=== PATIENT | male | born 1945 | race Caucasian/White ===

== ENCOUNTER 2022-04-04 14:25 | Emergency (ER) | payer MEDICARE, SELFPAY ==
[2022-04-04 14:40] VITALS: BP 144/71; PULSE 66; RESP 18; TEMP 36.6; O2SAT 98
--- NOTE | 2022-04-04 14:49 | ED.GENADULT ---
HPI - General Adult General Chief complaint: Ear Stated complaint: lt earache Time Seen by Provider: 04/04/22 14:49 Source: patient, RN notes reviewed and old records reviewed Mode of arrival: ambulatory Limitations: no limitations History of Present Illness HPI narrative: 77-year-old male presents to the [facility] with his with in left-sided ear pain for 10 days. States that he had seen his primary and was prescribed azithromycin for the ear infection. States it is not getting any better. Patient is concerned because he has recently had a hip replacement. Currently on Coumadin. Related Data Home Medications Medication Instructions Recorded Confirmed allopurinol 300 mg tablet 300 mg PO DAILY 04/04/22 04/04/22 amlodipine 5 mg tablet 5 mg PO DAILY 04/04/22 04/04/22 ascorbate calcium (vitamin C) 500 500 mg PO DAILY 04/04/22 04/04/22 mg tablet ascorbic acid 90 mg-zinc oxide 50 15 cap PO PRN 04/04/22 04/04/22 mg capsule atorvastatin 10 mg tablet 10 mg PO DAILY 04/04/22 04/04/22 calcitriol 0.25 mcg capsule 0.25 mcg PO DAILY 04/04/22 04/04/22 calcium phos,tribasic 260 mg-D3 25 1 tablet PO DAILY 04/04/22 04/04/22 mcg-herbal 50 mg chewable tablet (Alive Calcium-Vitamin D3) docosahexaenoic acid 200 mg 500 mg PO DAILY 04/04/22 04/04/22 capsule (Algal [place]-3 DHA) docusate sodium 100 mg capsule 100 mg PO DAILY 04/04/22 04/04/22 (Dulcolax Stool Softener (docusate)) doxazosin 2 mg tablet 2 mg PO DAILY 04/04/22 04/04/22 ferrous sulfate 325 mg (65 mg 325 mg PO DAILY 04/04/22 04/04/22 iron) tablet (FeroSul) fluticasone propionate 50 2 spray intranasal DAILY 04/04/22 04/04/22 mcg/actuation nasal spray,suspension (Flonase Allergy Relief) folic acid 1 mg tablet 1 mg PO DAILY 04/04/22 04/04/22 glipizide 5 mg tablet 5 mg PO DAILY 04/04/22 04/04/22 levothyroxine 137 mcg tablet 137 mcg PO DAILY 04/04/22 04/04/22 metoprolol succinate 25 mg 25 mg PO POST-TRANSFUSION 04/04/22 04/04/22 tablet,extended release 24 hr omeprazole 20 mg capsule,delayed 20 mg PO DAILY 04/04/22 04/04/22 release pen needle, diabetic 32 gauge x 04/04/22 04/04/22 polyethylene glycol 3350 17 17 g PO DAILY 04/04/22 04/04/22 gram/dose oral powder (ClearLax) warfarin 5 mg tablet 5 mg PO DAILY 04/04/22 04/04/22 Allergies Allergy/AdvReac Type Severity Reaction Status Date / Time No Known Allergies Allergy Verified 04/04/22 14:41 Review of Systems Review of Systems: All systems reviewed & are unremarkable except as noted in HPI and below Constitutional: Constitutional: Reports no additional constitutional complaints Eyes: Eyes: Reports no additional eye complaints ENT: Reports as per HPI Cardiovascular: Cardiovascular: Reports no additional cardiovascular complaints, Denies chest pain and Denies dyspnea Respiratory: Respiratory: Reports no additional respiratory complaints, Denies chest congestion, Denies cough and Denies dyspnea Gastrointestinal: Gastrointestinal: Reports no additional gastrointestinal complaints, Denies abdominal pain, Denies nausea and Denies vomiting Musculoskeletal: Musculoskeletal: Reports no additional musculoskeletal complaints Integumentary/Breasts: Skin/Breast: Reports system reviewed and no additional complaints, except as docu Neurologic: Reports system reviewed and no additional complaints, except as documented Psychiatric: Psychiatric: Reports no additional psychiatric complaints Allergic/Immunologic: Allergic/Immunologic: Reports no additional allergic/immunologic complaints PMFSH Comments At the time of my signature, I reviewed and agree with the nursing past medical, surgical, social, and family history. There is no relevant family history pertinent to the patient complaint. Exam Const: General: cooperative, healthy appearing, comfortable, no acute distress, well developed, alert and well nourished Nutritional Appearance: well nourished Orientation/consciousness: p
== END 2022-04-04 15:24 | disposition home or self-care (01) ==
PROVIDERS: Emergency Provider Nurse Practitioner; PCP Internal Medicine
DX: H66.92 Otitis media, unspecified, left ear (principal); E11.22 Type 2 diabetes mellitus with diabetic chronic kidney disease; N18.4 Chronic kidney disease, stage 4 (severe); E89.0 Postprocedural hypothyroidism; Z85.528 Personal history of other malignant neoplasm of kidney; Z90.5 Acquired absence of kidney; Z85.46 Personal history of malignant neoplasm of prostate; Z90.79 Acquired absence of other genital organ(s); Z85.850 Personal history of malignant neoplasm of thyroid; Z96.641 Presence of right artificial hip joint
CPT/HCPCS: 99213; G0463

== ENCOUNTER 2022-04-24 13:00 | Emergency (ER) | payer MEDICARE, SELFPAY ==
--- NOTE | 2022-04-24 13:03 | ED.URI ---
HPI - URI/Sore Throat General Chief Complaint: Upper Respiratory Infection Stated Complaint: Cough,Diarrhea,Fatigue Time Seen by Provider: 04/24/22 13:16 Source: patient, RN notes reviewed and old records reviewed Mode of arrival: ambulatory Limitations: no limitations History of Present Illness HPI Narrative: 77-year-old male presents to the [facility] with 3 days of cough, diarrhea, fatigue, generalized weakness. Patient arrived with 2 person assist in walking. states that he had diarrhea on Wednesday, was okay on Wednesday and this morning when he had diarrhea got extremely dizzy and felt like he was going to pass out, decided to come to the [facility] for evaluation. MD elicited complaint: fever and cough Onset (ago): day(s) (3) Related Data Home Medications Medication Instructions Recorded Confirmed allopurinol 300 mg tablet 300 mg PO DAILY 04/04/22 04/04/22 amlodipine 5 mg tablet 5 mg PO DAILY 04/04/22 04/04/22 ascorbate calcium (vitamin C) 500 500 mg PO DAILY 04/04/22 04/04/22 mg tablet ascorbic acid 90 mg-zinc oxide 50 15 cap PO PRN 04/04/22 04/04/22 mg capsule atorvastatin 10 mg tablet 10 mg PO DAILY 04/04/22 04/04/22 calcitriol 0.25 mcg capsule 0.25 mcg PO DAILY 04/04/22 04/04/22 calcium phos,tribasic 260 mg-D3 25 1 tablet PO DAILY 04/04/22 04/04/22 mcg-herbal 50 mg chewable tablet (Alive Calcium-Vitamin D3) docosahexaenoic acid 200 mg 500 mg PO DAILY 04/04/22 04/04/22 capsule (Algal [place]-3 DHA) docusate sodium 100 mg capsule 100 mg PO DAILY 04/04/22 04/04/22 (Dulcolax Stool Softener (docusate)) doxazosin 2 mg tablet 2 mg PO DAILY 04/04/22 04/04/22 ferrous sulfate 325 mg (65 mg 325 mg PO DAILY 04/04/22 04/04/22 iron) tablet (FeroSul) fluticasone propionate 50 2 spray intranasal DAILY 04/04/22 04/04/22 mcg/actuation nasal spray,suspension (Flonase Allergy Relief) folic acid 1 mg tablet 1 mg PO DAILY 04/04/22 04/04/22 glipizide 5 mg tablet 5 mg PO DAILY 04/04/22 04/04/22 levothyroxine 137 mcg tablet 137 mcg PO DAILY 04/04/22 04/04/22 metoprolol succinate 25 mg 25 mg PO POST-TRANSFUSION 04/04/22 04/04/22 tablet,extended release 24 hr omeprazole 20 mg capsule,delayed 20 mg PO DAILY 04/04/22 04/04/22 release pen needle, diabetic 32 gauge x 04/04/22 04/04/22 polyethylene glycol 3350 17 17 g PO DAILY 04/04/22 04/04/22 gram/dose oral powder (ClearLax) warfarin 5 mg tablet 5 mg PO DAILY 04/04/22 04/04/22 Allergies Allergy/AdvReac Type Severity Reaction Status Date / Time No Known Allergies Allergy Verified 04/24/22 13:18 Review of Systems Review of Systems: All systems reviewed & are unremarkable except as noted in HPI and below Constitutional: Constitutional: Reports as per HPI, Reports body ache(s), Reports fatigue, Reports lethargy and Reports weakness Eyes: Eyes: Reports no additional eye complaints ENT: Reports system reviewed and no additional complaints, except as documented Cardiovascular: Cardiovascular: Reports no additional cardiovascular complaints, Denies chest pain and Denies dyspnea Respiratory: Respiratory: Reports as per HPI, Denies chest congestion, Reports cough, Denies dyspnea and Reports dyspnea on exertion Gastrointestinal: Gastrointestinal: Reports no additional gastrointestinal complaints, Denies abdominal pain, Denies nausea and Denies vomiting Musculoskeletal: Musculoskeletal: Reports no additional musculoskeletal complaints Integumentary/Breasts: Skin/Breast: Reports system reviewed and no additional complaints, except as docu Neurologic: Reports system reviewed and no additional complaints, except as documented Psychiatric: Psychiatric: Reports no additional psychiatric complaints Allergic/Immunologic: Allergic/Immunologic: Reports no additional allergic/immunologic complaints PMFSH Past Medical History Medical History (Updated 04/24/22 @ 18:57 by Cecily Reilly APRN) H/O gastroesophageal reflux (GERD) High choleste
[2022-04-24 13:10] VITALS: O2SAT 94
[2022-04-24 13:20] VITALS: BP 116/60; BP 119/106; PULSE 68; RESP 20; TEMP 37.4; O2SAT 86
[2022-04-24 13:25] VITALS: O2SAT 91
--- NOTE | 2022-04-24 13:30 | PC.NURSE ---
Pt transferred via EMS for higher level of care at [facility]
[2022-04-24 13:40] VITALS: O2SAT 94
== END 2022-04-24 13:30 | disposition short-term general hospital (02) ==
LOC: EXPTROY 13:04
PROVIDERS: Emergency Provider Nurse Practitioner; PCP Internal Medicine
DX: J10.1 Influenza due to other identified influenza virus with other respiratory manifestations (principal); R53.1 Weakness; Z20.822 Contact with and (suspected) exposure to COVID-19; K21.9 Gastro-esophageal reflux disease without esophagitis; E78.00 Pure hypercholesterolemia, unspecified; I10 Essential (primary) hypertension
CPT/HCPCS: 87426; 87804; 99215; C9803; G0463

== ENCOUNTER 2023-03-07 10:06 | Emergency (ER) | payer MEDICARE, SELFPAY ==
[2023-03-07 10:17] VITALS: BP 139/54; PULSE 56; RESP 18; TEMP 36.8; O2SAT 95
--- NOTE | 2023-03-07 10:18 | ED.EAR ---
HPI - Ear Problem General Chief complaint: Ear Stated complaint: bilateral ear pain Time Seen by Provider: 03/07/23 10:18 Source: patient Mode of arrival: ambulatory Limitations: no limitations History of Present Illness HPI Narrative: 78 yo M presents with c/o pain to R ear with decreased hearing. Pt wears hearing aid to bilateral ears. Has had trouble in the past with ear wax impaction. Used hydrogen peroxide yesterday with no improvement of his symptoms. All systems reviewed and negative except as noted above. Related Data Home Medications Medication Instructions Recorded Confirmed allopurinol 300 mg tablet 300 mg PO DAILY 04/04/22 04/04/22 amlodipine 5 mg tablet 5 mg PO DAILY 04/04/22 04/04/22 ascorbate calcium (vitamin C) 500 500 mg PO DAILY 04/04/22 04/04/22 mg tablet ascorbic acid 90 mg-zinc oxide 50 15 cap PO PRN 04/04/22 04/04/22 mg capsule atorvastatin 10 mg tablet 10 mg PO DAILY 04/04/22 04/04/22 calcitriol 0.25 mcg capsule 0.25 mcg PO DAILY 04/04/22 04/04/22 calcium phos,tribasic 260 mg-D3 25 1 tablet PO DAILY 04/04/22 04/04/22 mcg-herbal 50 mg chewable tablet (Alive Calcium-Vitamin D3) docosahexaenoic acid 200 mg 500 mg PO DAILY 04/04/22 04/04/22 capsule (Algal [place]-3 DHA) docusate sodium 100 mg capsule 100 mg PO DAILY 04/04/22 04/04/22 (Dulcolax Stool Softener (docusate)) doxazosin 2 mg tablet 2 mg PO DAILY 04/04/22 04/04/22 ferrous sulfate 325 mg (65 mg 325 mg PO DAILY 04/04/22 04/04/22 iron) tablet (FeroSul) fluticasone propionate 50 2 spray intranasal DAILY 04/04/22 04/04/22 mcg/actuation nasal spray,suspension (Flonase Allergy Relief) folic acid 1 mg tablet 1 mg PO DAILY 04/04/22 04/04/22 glipizide 5 mg tablet 5 mg PO DAILY 04/04/22 04/04/22 levothyroxine 137 mcg tablet 137 mcg PO DAILY 04/04/22 04/04/22 metoprolol succinate 25 mg 25 mg PO POST-TRANSFUSION 04/04/22 04/04/22 tablet,extended release 24 hr omeprazole 20 mg capsule,delayed 20 mg PO DAILY 04/04/22 04/04/22 release pen needle, diabetic 32 gauge x 04/04/22 04/04/22 polyethylene glycol 3350 17 17 g PO DAILY 04/04/22 04/04/22 gram/dose oral powder (ClearLax) warfarin 5 mg tablet 5 mg PO DAILY 04/04/22 04/04/22 Allergies Allergy/AdvReac Type Severity Reaction Status Date / Time No Known Allergies Allergy Verified 04/24/22 13:18 Review of Systems Review of Systems: CONSTITUTIONAL: Denies fever, chills, or sweats. EYES: Denies visual changes, redness, or discharge. ENT: Denies rhinorrhea, congestion, sore throat . Reports right ear pain and decreased hearing. CARDIOVASCULAR: Denies chest pain, palpitations, or edema. RESPIRATORY: Denies cough or dyspnea. GASTROINTESTINAL: Denies abdominal pain, nausea, vomiting, or diarrhea. GENITOURINARY: Denies dysuria or hematuria. SKIN: Denies rash or itching. MUSCULOSKELETAL: Denies back pain, joint pain, or myalgia. NEUROLOGIC: Denies headache, numbness, or weakness. PSYCHIATRIC: Denies anxiety or depression. All other systems reviewed are negative, except as documented in HPI. [facility] Past Medical History Medical History (Updated 03/07/23 @ 10:27 by Elena Lucas NP) H/O gastroesophageal reflux (GERD) High cholesterol History of high blood pressure Comments At time of signature, agree with nursing past medical, surgical, social and family history. There is no relevant family history pertinent to the presenting complaint. Exam Narrative: GENERAL: This is a well-nourished, well-developed patient, in no apparent distress. HEAD: normocephalic, atraumatic. EYES: PERRL. Sclera clear/white. Vision is grossly intact. EARS: External ears normal, Left TM and canal normal. Right TM is erythematous and opaque, right ear canal is erythematous and swollen with yellow drainage. No cerumen impaction bilaterally. NOSE: External nose normal NECK: Neck supple, non-tender without lymphadenopathy, masses or thyromegaly. CARDIOVASCULAR: R
== END 2023-03-07 10:33 | disposition home or self-care (01) ==
PROVIDERS: Emergency Provider Nurse Practitioner Family; PCP Family Medicine
DX: H66.91 Otitis media, unspecified, right ear (principal); H60.91 Unspecified otitis externa, right ear; K21.9 Gastro-esophageal reflux disease without esophagitis; E78.00 Pure hypercholesterolemia, unspecified; I10 Essential (primary) hypertension; Z79.01 Long term (current) use of anticoagulants
CPT/HCPCS: 99213; G0463